=== PATIENT | male | born 1985 | race African-American/Black ===

== ENCOUNTER 2018-11-12 21:26 | Emergency (ER) | payer OTHER ==
[2018-11-12 21:48] VITALS: BP 155/94; PULSE 81; TEMP 98.1; BMI 35.2
--- NOTE | 2018-11-12 21:51 | PDOC ---
Documentation entered by Sundeep Milton SCRIBE, acting as scribe for Lonnie Blackwell MD. Lonnie Blackwell MD: This documentation has been prepared by the Karine childers Andrys, SCRIBE, under my direction and personally reviewed by me in its entirety. I confirm that the documentation accurately reflects all work, treatment, procedures, and medical decision making performed by me. History of Present Illness - General Stated Complaint: L MIDDLE FINGER SWELLING Time Seen by Provider: 11/12/18 21:35 History Source: Patient Exam Limitations: No Limitations - History of Present Illness Initial Comments: 11/12/18 21:37 The patient is a 33 year old male with no significant past medical history who presents to the ED with several days of left 3rd digit swelling. Patient went to urgent care yesterday and was given antibiotics for his left finger pain. Patient comes into the ED with worsening pain and swelling to the left third digit. Denies any other symptoms. PAST MEDICAL HISTORY: no significant history PAST SURGICAL HISTORY: no significant history FAMILY HISTORY: no pertinent history SOCIAL HISTORY: Pt lives with family and is employed. MEDICATIONS: reviewed ALLERGIES: As per nursing notes General: No fevers or chills, no weakness, no weight loss HEENT: No change in vision. No sore throat,. No ear pain Cardiovascular: No chest pain or shortness of breath Respiratory:No cough, or wheezing. Gastrointestinal: no nausea, vomiting, diarrhea or constipation, No rectal bleeding Genitourinary: No dysuria, hematuria, or frequency Musculoskeletal: + left finger pain and swelling. Neurologic: No headache, vertigo, dizziness or loss of consciousness Psychiatric: nor depression Skin: No rashes or easy bruising Endocrine: no increased thirst or abnormal weight change Allergic: no skin or latex allergy All other systems reviewed and normal GENERAL: The patient is awake, alert, and fully oriented, in no acute distress. HEAD: Normal with no signs of trauma. EYES: Pupils equal, round and reactive to light, extraocular movements intact, sclera anicteric, conjunctiva clear. EXTREMITIES: + In the left middle finger base of the nail there is moderate swelling, redness and tenderness consistent with paronychia. NEUROLOGICAL: Normal speech, normal gait. PSYCH: Normal mood, normal affect. SKIN: Warm, Dry, normal turgor, no rashes or lesions noted. 11/12/18 22:18 Procedure note I&D of a paronychia left middle finger Finger was anesthetized via digital block with approximately 4 mL lidocaine no epinephrine. Paronychia was incised with a #11 blade with moderate amount of pus Wound culture was collected Packing was placed in the wound Dressing applied and the patient discharged home patient tolerated procedure well Assessment plan: This is a 33-year-old male with a paronychia of his left middle finger. Paronychia was incised and drained and packing was placed. Patient given discharge instructions and discharged. Past History - Past Medical History Allergies/Adverse Reactions: Allergies Allergy/AdvReac Type Severity Reaction Status Date / Time No Known Allergies Allergy Verified 11/12/18 21:37 Home Medications: Ambulatory Orders Doxycycline Hyclate [Vibramycin -] 100 mg PO BID 11/12/18 - Immunization History Td Vaccination: Yes - Suicide/Smoking/Psychosocial Hx Smoking Status: No Smoking History: Never smoked Years of Tobacco Use: 0 Number of Cigarettes Smoked Daily: 0 Hx Alcohol Use: No *DC/Admit/Observation/Transfer Diagnosis at time of Disposition: Paronychia of left middle finger - Discharge Dispostion Disposition: HOME Decision to Admit order: No - Referrals - Patient Instructions Additional Instructions: Instructions as discussed by the physician. Remove the Band-Aid and a packing in 24 hours and to the hot soaks as described. Due to the hot soaks 3 times a day for the next 2 days after removing the packing. Tylenol or Motrin as needed for pain. Return to the emergency department immediately with ANY new, persistent or worsening symptoms. Continue any medications as previously prescribed by your physician. You should follow up with your primary doctor as soon as possible regarding today's emergency department visit. . Please make sure your doctor reviews the results of your emergency evaluation. Thank you for coming to the Emergency Department today for your care. It was a pleasure to see you today. Please note that your evaluation is INCOMPLETE until you follow-up with your doctor. - Post Discharge Activity
== END 2018-11-12 22:06 | disposition home or self-care (01) ==
LOC: FER 21:26
DX: L03.012 Cellulitis of left finger (principal)
CPT/HCPCS: 87070; 87077; 87186; 87205; 99282-25